=== PATIENT | female | born 1950 | race Caucasian/White ===

== ENCOUNTER 2023-06-14 10:47 | Emergency (ER) | payer OTHER ==
--- OUTSIDE RECORDS SUMMARY | 2023-06-14 10:49 | XMS REPORT | Continuity of Care Document ---
:1950 Author Organization [facility] t Address [address] [place] [id number] Care Team Providers Name Role Phone Sherry Castaneda Attending Clinician Unavailable Problems This patient has no known problems. Allergies, Adverse Reactions, Alerts This patient has no known allergies or adverse reactions. Medications This patient has no known medications. Procedures This patient has no known procedures. Encounters Start End Encounter Admission Attending Care Care Encounter Source Date/Time Date/Time Type Type Clinicians Facility Department ID 2022-11-[address] [facility] [id number] Common 08:51:05 Sherry [id number] [facility] Results This patient has no known results.
[2023-06-14] MEDS ORDERED: TDAP (DIPHTH,PERTUSS(ACELL),TET VAC) 0.5 ML VIAL IMVAC ONE (11:49)
[2023-06-14] MEDS ORDERED: HYDROCODONE/APAP 5/325 MG TAB ONE (12:03)
--- NOTE | 2023-06-14 12:07 | RAD REPORT ---
EXAM DESCRIPTION: CT - CTHCSPWOC - 06/14/2023 11:16 am CLINICAL HISTORY: Trauma, head and neck injury. TRAUMA COMPARISON: Facial Bones W/ Mpr dated 06/14/2023; Thorax Wo Con dated 06/14/2023 TECHNIQUE: Axial 5 mm thick images of the head were obtained. Axial 2 mm thick images of the cervical spine were obtained with sagittal and coronal reconstruction images generated and reviewed. All CT scans are performed using dose optimization technique as appropriate and may include automated exposure control or mA/KV adjustment according to patient size. FINDINGS: CT HEAD WITHOUT CONTRAST: No acute hemorrhage, hydrocephalus or extra-axial collection is identified.No areas of brain edema or midline shift. The paranasal sinuses and mastoids are clear.The calvarium is intact. CT CERVICAL SPINE WITHOUT CONTRAST: No acute fracture is visualized.3 mm anterolisthesis is seen C4 on 5 with widening of the left facet joint noted by 3 mm. This could be trauma related. MRI cervical spine is recommended.No prevertebral soft tissues swelling is identified. IMPRESSION: No acute intracranial abnormality. 3 mm anterolisthesis is seen of C4 on 5 with widening of the left facet joint. Wall degenerative etio logy is possible, trauma can also result in this appearance. Recommend MRI cervical spine for further evaluation.
--- NOTE | 2023-06-14 12:11 | RAD REPORT ---
EXAM DESCRIPTION: CT - Thorax Wo Con CLINICAL HISTORY: Chest pain TRAUMA COMPARISON: No comparisons FINDINGS: Calcified granuloma seen in the right lower lobe posteriorly. The lungs are otherwise pearl r. Small hiatal hernia. No pleural thickening or pleural effusion. No pneumothorax. No axillary, mediastinal or hilar adenopathy. No concerning bony finding. No gross upper abdominal finding. All CT scans are performed using dose optimization technique as appropriate and may include automated exposure control or mA/KV adjustment according to patient size. IMPRESSION: No acute intrathoracic process is seen.
--- NOTE | 2023-06-14 12:12 | RAD REPORT ---
EXAM DESCRIPTION: CT - CTFB CLINICAL HISTORY: FACIAL PAIN COMPARISON: No comparisons TECHNIQUE: Axial 2 mm thick images of the face were obtained with sagittal and coronal reconstructio n images. All CT scans are performed using dose optimization technique as appropriate and may include automated exposure control or mA/KV adjustment according to patient size. FINDINGS: No acute facial bone fracture is seen.The mandible is intact. The globes and orbital contents are grossly unremarkable.Mild mucoperiosteal thickening affects the r ight maxillary antrum. Paranasal sinuses and mastoids are otherwise clear. IMPRESSION: Negative for facial bone fracture.
--- NOTE | 2023-06-14 12:19 | RAD REPORT ---
EXAM DESCRIPTION: RAD - Wrist Right 3 View - 06/14/2023 11:47 am CLINICAL HISTORY: trauma Pain COMPARISON: No comparisons FINDINGS: No fracture or dislocation seen. No foreign body or other soft tissue abnormality. IMPRESSION: Negative examination.
--- NOTE | 2023-06-14 13:01 | RAD REPORT ---
EXAM DESCRIPTION: RAD - Shoulder Left 2 View - 06/14/2023 12:53 pm CLINICAL HISTORY: Left shoulder pain status post fall FINDINGS: No fracture or dislocation is seen.
--- NOTE | 2023-06-14 14:00 | RAD REPORT ---
EXAM DESCRIPTION: MRI - C Spine Wo Cont - 06/14/2023 1:27 pm CLINICAL HISTORY: Fall with neck pain and radiculopathy COMPARISON: CT cervical spine June 14, 2023 TECHNIQUE: Magnetic resonance imaging of the cervical spine was obtained. Sagittal and axial images completed. FINDINGS: No significant abnormality craniocervical junction Mild spondylosis C2-3 and C3-4 Mild anterior subluxation C4 on C5. The left facet joint C4-5 is widened with increased signal within the ligament. Increased signal left superior articular process C5 Mild spondylosis C5-6, C6-7. C7-T1 are unremarkable. No evidence of a spinal cord contusion IMPRESSION: Ligamentous injury involving the left facet joint C4-5. Increased signal left superior articular process C5 probably nondisplaced fracture Moderate central spinal stenosis C4-5
--- NOTE | 2023-06-14 15:06 | EDPHYS ---
Physician Documentation [facility] Name: Sujey Swartz Age: 73 yrs Sex: Female : 1950 Arrival Date: 06/14/2023 Time: 10:47 Bed 14 Private MD: ED Physician David Haley HPI: 06/14 13:00 This 73 yrs old Female presents to ER via EMS with complaints of Fall Injury. rt 13:00 Patient presents to the ED with a trip and fall. The patient reports hitting her head. rt Does report of neck pain, left shoulder pain, pain to the right wrist. She does report abrasions to the bilateral knees, but denies significant pain to those. Denies other acute complaints at this time. Pain is aching nature, nonradiating, mild in severity, no other aggravating or alleviating factors. Historical: - Allergies: 11: No Known Allergies; db - Home Meds: 11: losartan oral [Active]; db - PMHx: 11: HIGH CHOLESTERAL; Arthritis; db 11:02 Hypertensive disorder; db - Immunization history:: Last tetanus immunization: unknown. - Social history:: Smoking status: Patient denies any tobacco usage or history of. - Family history:: not pertinent. ROS: 13:00 Constitutional: Negative for fever, chills, and weight loss, Cardiovascular: Negative rt for chest pain, palpitations, and edema, Respiratory: Negative for shortness of breath, cough, wheezing, and pleuritic chest pain, Abdomen/GI: Negative for abdominal pain, nausea, vomiting, diarrhea, and constipation, Neuro: Negative for headache, weakness, numbness, tingling, and seizure, Psych: Negative for depression, anxiety, suicide ideation, homicidal ideation, and hallucinations. 13:00 Neck: Positive for pain at rest, Negative for rash. 13:00 MS/extremity: Positive for pain, Negative for deformity. Exam: 13:00 Constitutional: This is a well developed, well nourished patient who is awake, alert, rt and in no acute distress. Chest/axilla: Normal chest wall appearance and motion. Nontender with no deformity. No lesions are appreciated. Cardiovascular: Regular rate and rhythm with a normal S1 and S2. No gallops, murmurs, or rubs. Normal PMI, no JVD. No pulse deficits. Respiratory: Lungs have equal breath sounds bilaterally, clear to auscultation and percussion. No rales, rhonchi or wheezes noted. No increased work of breathing, no retractions or nasal flaring. Abdomen/GI: Soft, non-tender, with normal bowel sounds. No distension or tympany. No guarding or rebound. No evidence of tenderness throughout. Back: No spinal tenderness. No costovertebral tenderness. Full range of motion. Neuro: Awake and alert, GCS 15, oriented to person, place, time, and situation. Cranial nerves II-XII grossly intact. Motor strength 5/5 in all extremities. Sensory grossly intact. Cerebellar exam normal. Normal gait. Psych: Awake, alert, with orientation to person, place and time. Behavior, mood, and affect are within normal limits. 13:00 Head/face: Abrasion noted to the left side of the face, no bruising noted.. 13:00 Neck: Mild posterior cervical midline tenderness, no step-offs. 13:00 Musculoskeletal/extremity: Bruising, mild swelling to the right wrist, no snuffbox tenderness, pulses, motor, sensation intact, abrasions to bilateral knees, no appreciable tenderness.. Vital Signs: 10:47 BP 171 / 82; Pulse 103; Resp 18; Temp 98.1(O); Pulse Ox 99% on R/A; Weight 79.38 kg; db Height 5 ft. 2 in. ; 14:37 BP 136 / 71; Pulse 77; Resp 16; Pulse Ox 99% on R/A; db 15:00 BP 99 / 78; Pulse 88; Resp 16; Pulse Ox 100% on R/A; db 16:00 BP 141 / 69; Pulse 87; Resp 16; Pulse Ox 97% on R/A; db 10:47 Body Mass Index 32.01 (79.38 kg, 157.48 cm) db MDM: 10:53 Patient medically screened. rt 16:24 Differential diagnosis: Spinal injury, closed head injury, fracture. Data reviewed: rt vital signs, nurses notes, lab test result(s), radiologic studies. Consideration of Admission/Observation Escalation of care including admission/observation considered. Management of patient was discussed with the following: Coin Rolling Machine Operator: Discussed with accepting neurosurgeon. I considered the following discharge prescriptions or medication management in the emergency department Medications were administered in the Emergency Department. See MAR. Independent interpretation of the following test(s) in the Emergency Department CT Scan: My interpretation is No hemorrhage seen on interpretation of the CT scan images. Discussion of test interpretation with radiology: I had a discussion with radiology regarding a test interpretation. Discussed findings of ligamentous injury with radiologist. Test considered but Not performed:. Counseling: I had a detailed discussion with the patient and/or guardian regarding the historical points, exam findings, and any diagnostic results supporting the discharge/admit diagnosis, radiology results, the need to transfer to another facility. Response to treatment: the patient's symptoms have markedly improved after treatment. 06/14 10:54 Order name: CT Head C Spine; Complete Time: 12:21 rt 06/14 10:54 Order name: CT Chest Wo Con; Complete Time: 12:21 rt 06/14 10:54 Order name: Wrist Right 3 View XRAY; Complete Time: 12:21 rt 06/14 11:03 Order name: CT Facial Bones W/O Con; Complete Time: 12:21 rt 06/14 12:30 Order name: Shoulder Left (2 View) XRAY; Complete Time: 14:00 rt 06/14 12:32 Order name: C Spine Wo Cont; Complete Time: 14:00 EDMS Administered Medications: 11:44 Drug: Tetanus-Diphtheria Toxoid IM Adult 0.5 ml {Operations Intelligence Superintendent: [employer] db Exp: 11/07/2023. Lot #: [id number]. } Route: IM; Site: right deltoid; 15:51 Follow up: Response: (VIS) Vaccine information sheet provided today. Questions and/or db concerns addressed. VIS edition date: May 26, 2021.; No adverse reaction 11:53 Drug: HYDROcodone-acetaminophen PO 5 mg-325 mg 1 tabs Route: PO; db 15:51 Follow up: Response: No adverse reaction db Disposition Summary: 06/14/23 15:05 Transfer Ordered Transfer Location: [facility] rt Reason: Higher level of care rt Condition: Stable rt Problem: new rt Symptoms: are unchanged rt Accepting Physician: Dr. Berkowitz(06/14/23 16:33) db Diagnosis - Mechanical fall rt - Ligamentous injury of C4/C5 facet rt Forms: - Medication Reconciliation Form rt - SBAR form rt Signatures: Dispatcher [employer] EDSalina Ibarra, RN RN db David Haley MD MD rt Corrections: (The following items were deleted from the chart) 16:33 15:05 Dr. Berkowizt rt db
--- NOTE | 2023-06-14 15:06 | ER ---
Nurse's Notes [facility] Name: Sujey Swartz Age: 73 yrs Sex: Female : 1950 Arrival Date: 06/14/2023 Time: 10:47 Bed 14 Private MD: Diagnosis: Mechanical fall;Ligamentous injury of C4/C5 facet Presentation: 06/14 10:47 Chief complaint: EMS states: PATIENT TRIPPED AND FELL ON STAIRS TODAY. DENIES LOC. FACE db AND CHEEK PAIN. LEFT COLLAR BONE PAIN. BILATERAL KNEE PAIN. Coronavirus screen: Vaccine status: Patient reports receiving the 2nd dose of the covid vaccine. Client denies travel out of the [place] in the last 14 days. At this time, the client does not indicate any symptoms associated with coronavirus-19. Ebola Screen: Patient negative for fever greater than or equal to 101.5 degrees Fahrenheit, and additional compatible Ebola Virus Disease symptoms Patient denies exposure to infectious person. Patient denies travel to an Ebola-affected area in the 21 days before illness onset. No symptoms or risks identified at this time. Initial Sepsis Screen: Does the patient meet any 2 criteria? No. Patient's initial sepsis screen is negative. Does the patient have a suspected source of infection? No. Patient's initial sepsis screen is negative. Risk Assessment: Do you want to hurt yourself or someone else? Patient reports no desire to harm self or others. 10:47 Method Of Arrival: EMS: [facility] db 10:47 Acuity: FINA 3 db 12:00 Onset of symptoms was June 14, 2023. db Triage Assessment: 10:47 General: Appears in no apparent distress. comfortable, Behavior is calm, cooperative. db Pain: Complains of pain in face, left hand, right arm, right leg and left leg, LEFT SHOULDER. Neuro: Level of Consciousness is awake, alert, obeys commands, Oriented to person, place, time, situation. Historical: - Allergies: 11: No Known Allergies; db - Home Meds: 11:01 losartan oral [Active]; db - PMHx: 11:01 HIGH CHOLESTERAL; Arthritis; db 11:02 Hypertensive disorder; db - Immunization history:: Last tetanus immunization: unknown. - Social history:: Smoking status: Patient denies any tobacco usage or history of. - Family history:: not pertinent. Screenin:03 [facility] ED Fall Risk Assessment (Adult) History of falling in the last 3 months, db including since admission Yes- single mechanical fall (1 pt) Confusion or Disorientation No (0 pts) Intoxicated or Sedated No (0 pts) Impaired Gait No (0 pts) Mobility Assist Device Used No (0 pt) Altered Elimination No (0 pt) Score/Fall Risk Level 0 - 2 = Low Risk Oriented to surroundings, Maintained a safe environment. Abuse screen: Denies threats or abuse. Denies injuries from another. Nutritional screening: No deficits noted. Tuberculosis screening: No symptoms or risk factors identified. Assessment: 10:55 Reassessment: Patient appears in no apparent distress at this time. Patient and/or db family updated on plan of care and expected duration. Pain level reassessed. Patient is alert, oriented x 3, equal unlabored respirations, skin warm/dry/pink. PATIENT TO CT. 13:07 Reassessment: PT IN MRI. db 14:52 Reassessment: Patient appears in no apparent distress at this time. No changes from db previously documented assessment. Patient and/or family updated on plan of care and expected duration. Pain level reassessed. Patient is alert, oriented x 3, equal unlabored respirations, skin warm/dry/pink. General: Appears in no apparent distress. comfortable, Behavior is calm, cooperative. Neuro: Level of Consciousness is awake, alert, obeys commands, Oriented to person, place, time, situation. Respiratory: Airway is patent Respiratory effort is even, unlabored, Respiratory pattern is regular, symmetrical. 15:38 Reassessment: CALLED TO GIVE REPORT FOR PATIENT TRANSFER. NURSE IS NOT READY STATES db WILL CALL US BACK. [phone]. 15:50 Reassessment: Patient appears in no apparent distress at this time. Patient and/or db family updated on plan of care and expected duration. Pain level reassessed. Patient is alert, oriented x 3, equal unlabored respirations, skin warm/dry/pink. 15:50 Reassessment: REPORT CALLED TO WILL AT [facility] IN [place]. db 16:17 Reassessment: Patient appears in no apparent distress at this time. Patient and/or db family updated on plan of care and expected duration. Pain level reassessed. Patient is alert, oriented x 3, equal unlabored respirations, skin warm/dry/pink. 16:31 Reassessment: EMS ARRIVED FOR PATIENT. PATIENT TRANSPORTED TO [facility]. db Vital Signs: 10:47 BP 171 / 82; Pulse 103; Resp 18; Temp 98.1(O); Pulse Ox 99% on R/A; Weight 79.38 kg; db Height 5 ft. 2 in. ; 14:37 BP 136 / 71; Pulse 77; Resp 16; Pulse Ox 99% on R/A; db 15:00 BP 99 / 78; Pulse 88; Resp 16; Pulse Ox 100% on R/A; db 16:00 BP 141 / 69; Pulse 87; Resp 16; Pulse Ox 97% on R/A; db 10:47 Body Mass Index 32.01 (79.38 kg, 157.48 cm) db ED Course: 10:47 Arm band placed on Patient placed in an exam room. db 10:50 Patient arrived in ED. sb4 10:53 David Haley MD is Attending Physician. rt 10:56 Salina Mohr, DANNI is Primary Nurse. db 10:59 Triage completed. db 11:17 CT Head C Spine In Process Unspecified. EDMS 11:18 CT Chest Wo Con In Process Unspecified. EDMS 11:18 CT Facial Bones W/O Con In Process Unspecified. EDMS 11:49 Wrist Right 3 View XRAY In Process Unspecified. EDMS 12:55 Shoulder Left (2 View) XRAY In Process Unspecified. EDMS 13:15 C Spine Wo Cont In Process Unspecified. EDMS 14:11 initiated a transfer with Patti from the [facility] Transfer Center. eb 14:[address] Moffett/ one of the Trauma doctors at [facility] with Dr. Haley eb for patient consultation. 14:50 connected the neuro surgeon product safety professional for [facility] with Dr. Haley for patient eb transfer consultation. 14:52 Saskia cervical collar applied. db 14:58 administrative approval given by Pamela Esqueda Rn/ patient as been accepted to [facility] 11b room 1123/ Dr. Parminder Ohara has accepted the patient in transfer/ report to be called to [phone]. 16:14 Inserted saline lock: 22 gauge in right forearm, using aseptic technique. ds4 16:31 Patient has correct armband on for positive identification. Bed in low position. Call db light in reach. Side rails up X 1. Provided Education on: TRANSPORT TO [facility]. Pulse ox on. NIBP on. Warm blanket given. 16:31 No provider procedures requiring assistance completed. Patient transferred, IV remains db in place. Administered Medications: 11:44 Drug: Tetanus-Diphtheria Toxoid IM Adult 0.5 ml {Communications Department Chair: [employer] ([employer]). db Exp: 11/07/2023. Lot #: [id number]. } Route: IM; Site: right deltoid; 15:51 Follow up: Response: (VIS) Vaccine information sheet provided today. Questions and/or db concerns addressed. VIS edition date: May 26, 2021.; No adverse reaction 11:53 Drug: HYDROcodone-acetaminophen PO 5 mg-325 mg 1 tabs Route: PO; db 15:51 Follow up: Response: No adverse reaction db Medication: 15:51 Vaccine Information Statement (VIS) provided today. Questions and/or concerns db addressed. VIS edition date: May 26, 2021. Outcome: 15:05 ER care complete, transfer ordered by . rt 16:31 Transferred by ground EMS to [facility], Transfer form db completed. X-rays sent w/ patient. 16:31 Condition: stable 16:31 Instructed on the need for transfer. 16:33 Patient left the ED. db Signatures: Dispatcher [employer] Ravi Salas ds4 Rivka Marquez Danielle, RN RN db Alma Schroeder PA-C PA-C sb4 David Haley MD MD rt
[2023-06-14 16:49] VITALS: TEMP 98.1
[2023-06-14 16:54] VITALS: BP 141/69; O2SAT 97
== END 2023-06-14 16:33 | disposition short-term general hospital (02) ==
LOC: ER 10:47
DX: S16.9XXA Unspecified injury of muscle, fascia and tendon at neck level, initial encounter (principal); W01.0XXA Fall on same level from slipping, tripping and stumbling without subsequent striking against object, initial encounter; Z23 Encounter for immunization; I10 Essential (primary) hypertension
CPT/HCPCS: 70450; 70486; 71250; 72125; 72141; 76377; 90471; 99285